=== PATIENT | female | born 1995 | race Caucasian/White ===

== ENCOUNTER → 2024-02-15 | Outpatient (CLI) | payer OTHER, SELFPAY ==
[2024-02-17 21:07] LABS: Chlamydia By Nucleic Acid AMP Negative (Negative); Gonococcus By Nucleic Acid AMP Negative (Negative)
[2024-02-22 13:14] LABS: HPV Reflexed? NOT INDICATED
== END | disposition home or self-care (01) ==
LOC: LABSPEC 14:49
PROVIDERS: Visit Provider Nurse Practitioner Women's Health
DX: Z12.4 Encounter for screening for malignant neoplasm of cervix (principal); Z11.3 Encounter for screening for infections with a predominantly sexual mode of transmission
CPT/HCPCS: 87491; 87591; 88175; G0145

== ENCOUNTER → 2024-02-17 | Outpatient (CLI) | payer OTHER, SELFPAY ==
[2024-02-19 09:07] LABS: PROGESTERONE 1.2 ng/mL (.)
[2024-02-23 13:08] LABS: PROLACTIN 15.1 ng/mL (4.8-33.4); Testosterone Free 1.3 pg/mL (0.0-4.2)
== END | disposition home or self-care (01) ==
LOC: LAB 12:44
PROVIDERS: Referring Provider Nurse Practitioner Women's Health; Visit Provider Nurse Practitioner Women's Health
DX: N97.9 Female infertility, unspecified (principal)
CPT/HCPCS: 36415; 82627; 84144; 84146; 84402; 84443; 82626

== ENCOUNTER → 2024-02-23 | Outpatient (CLI) | payer OTHER, SELFPAY ==
--- NOTE | 2024-02-23 17:30 | US_ITS ---
STUDY: ULTRASOUND OF THE FEMALE PELVIS - COMPLETE REASON FOR EXAM: Female, 28 years old. MENORRHAGIA LMP: 02/15/2024 TECHNIQUE: Transabdominal and Transvaginal TECHNICAL QUALITY: Adequate. COMPARISON: None. FINDINGS: The uterus is anteverted and is in a midline position. The uterus measures 6.8 x 4.2 x 2.7 cm. Normal uterine cervix. The endometrium measures 4 mm in thickness, and is hyperechoic. There is no demonstrated endometrial mass. There is no demonstrated myometrial mass. I.U.D. - The patient does not have an I.U.D. The right ovary is visualized. The right ovary measures 2.7 x 2.2 x 1.3 cm. There is a 1.1 cm cyst. There is no visualized right adnexal mass or complex lesion. There is normal arterial and normal venous vascularity. The left ovary is visualized. The left ovary measures 3.2 x 2.1 x 1.8 cm. There is no left ovarian cyst or ovarian mass. There is no visualized left adnexal mass or complex lesion. There is normal arterial and normal venous vascularity. There is no fluid in the cul-de-sac. The pre void volume of the bladder was 478 ml. US/Pelvic w/ Transvaginal IMPRESSION: Normal female pelvis. Electronically Signed: Keegan Garcia MD at 18:06 EDT ,
== END | disposition home or self-care (01) ==
LOC: US 17:28
PROVIDERS: Referring Provider Nurse Practitioner Women's Health; Visit Provider Nurse Practitioner Women's Health
DX: N92.0 Excessive and frequent menstruation with regular cycle (principal)
CPT/HCPCS: 76830; 76856

== ENCOUNTER → 2024-04-03 | Outpatient (CLI) | payer OTHER, SELFPAY ==
--- NOTE | 2024-04-03 08:04 | MRI_ITS ---
EXAM: MR PELVIS WITHOUT AND WITH INTRAVENOUS CONTRAST CLINICAL INDICATION: Dysmenorrhea, chronic pelvic pain TECHNIQUE: Multiplanar and multisequence MR images of the pelvis without and with intravenous contrast. CONTRAST: IV 15ml Clariscan COMPARISON: Pelvic ultrasound 02/23/2024 FINDINGS: INTRAPERITONEAL SPACE: Physiological amount of free fluid noted within the pelvis. BLADDER: Normal. OVARIES: Right ovary measures 4.2 x 2.3 x 2.3 cm and contains multiple peripheral follicles measuring 6 mm and less in size. Additional thick-walled 2.1 cm complex right ovarian cyst suggestive of corpus luteum. Left ovary measures 3.0 x 2.5 x 1.1 cm and also contains subcentimeter follicles. UTERUS/CERVIX: Uterus is normal size measuring 6.8 x 4.6 x 3.1 cm. Endometrial thickness is 12 mm. No evidence of uterine mass. BONES/JOINTS: Normal. SOFT TISSUES: Normal. No pelvic wall hernia. LYMPH NODES: Normal. No enlarged lymph nodes. MRI/Pelvis W/WO Contrast IMPRESSION: 2.1 cm complex right ovarian lesion consistent with corpus luteum likely recently ruptured. Otherwise unremarkable pelvic MRI. Electronically Signed: Wilber Lopez MD at 9:58 EST ,
== END | disposition home or self-care (01) ==
PROVIDERS: Referring Provider Obstetrics & Gynecology; Visit Provider Obstetrics & Gynecology
DX: N94.6 Dysmenorrhea, unspecified (principal); R10.2 Pelvic and perineal pain
CPT/HCPCS: 72197; A9575

== ENCOUNTER → 2024-05-21 | Outpatient (CLI) | payer OTHER, SELFPAY ==
[2024-05-22 21:06] LABS: Chlamydia By Nucleic Acid AMP Negative (Negative); Gonococcus By Nucleic Acid AMP Negative (Negative)
== END | disposition home or self-care (01) ==
LOC: LABSPEC 10:37
PROVIDERS: Referring Provider Advanced Practice Midwife; Visit Provider Advanced Practice Midwife
DX: Z34.90 Encounter for supervision of normal pregnancy, unspecified, unspecified trimester (principal)
CPT/HCPCS: 87086; 87491; 87591

== ENCOUNTER → 2024-05-24 | Outpatient (CLI) | payer OTHER, SELFPAY ==
[2024-05-24 17:16] LABS: Absolute Lymphocyte Count 2.35 X10^3/uL (0.83-4.51); Basophil# 0.03 X10^3/uL; Basophil% 0.4 % (0-1); Eosinophil# 0.11 X10^3/uL; Eosinophils% 1.3 % (0-5); Hematocrit 34.9 % (37-47); Hemoglobin 11.6 g/dL (12.0-15.0); Lymphocyte # 2.35 X10^3/ul (0.83-4.51); Lymphocyte % 28.5 % (19-41); Mean Corp Hgb Conc 33.2 g/dL (32-36); Mean Corpuscular Hgb 29.4 pg (27.0-32.0); Mean Corpuscular Volume 88.6 fL (81-99); Mean Platelet Vol. 11.7 fl (6.2-12.0); Monocyte# 0.75 X10^3/uL; Monocyte% 9.1 % (0-10); NRBC Flagged by Analyzer 0 % (0-5); Neutrophil # 4.98 X10^3/uL (2.7-7.7); Neutrophil % 60.2 % (47-70); Platelet Count 241 K/mm3 (150-450); RBC Distribution Width CV 12.7 % (11.6-14.6); RBC Distribution Width SD 41.2 fl (35.1-43.9); Red Blood Count 3.94 M/mm3 (4.2-5.4); White Blood Count 8.3 K/mm3 (4.4-11.0)
[2024-05-24 18:01] LABS: HIV - WCH Non-Reactive (Nonreactive); Hepatitis B Surface Antigen Non-Reactive (Nonreactive); Hepatitis C Antibody Non-Reactive (Nonreactive); Rubella IgG Reactive (Nonreactive); Syphilis Antibodies Non-reactive
== END | disposition home or self-care (01) ==
LOC: BWCLAB 16:04
PROVIDERS: Referring Provider Advanced Practice Midwife; Visit Provider Advanced Practice Midwife
DX: Z34.90 Encounter for supervision of normal pregnancy, unspecified, unspecified trimester (principal)
CPT/HCPCS: 36415; 85025; 86703; 86762; 86780; 86803; 86850; 86900; 86901; 87340

== ENCOUNTER → 2024-06-05 | Outpatient (CLI) | payer OTHER, SELFPAY ==
--- NOTE | 2024-06-05 16:00 | CER_PTH ---
PATIENT: IGLESIA GURROLA LOC: [facility] U#:[id number] AGE/SX: 29/F ROOM: RE06/05/[address]: Dr. Ashwini Roth DO : 1995 BED: DIS: 06/05/2024 SPEC #: [id number] RECD: 06/05/24 16:53 STATUS: TYESHA GARCÍA #: [id number] LUAN: 06/05/24 16:[address]: Ashwini Roth DEPT: SURGICAL PATHOLOGY RECD BY: Natali Rodriguez Tissues: Uterine cervix, NOS Procedures: Surgery Specimen Level IV HEADER OPERATION: Polypectomy PRE-OP DIAGNOSIS: Cervical polyp TISSUE SUBMITTED: Cervical polyp MICROSCOPIC DIAGNOSIS Cervical polyp, polypectomy: Fragments of benign inflamed polyp with extensive decidual changes. See comment. 06/07/2024 COMMENT The specimen shows marked cautery artifacts. The findings may represent benign inflamed mixed endocervical and endometrial polyp. Case has been reviewed in consultation with Dr. Hu who concurs with the above diagnosis. IDC:[id number] MICROSCOPIC DESCRIPTION Slides are reviewed. GROSS DESCRIPTION Received is one container labeled with the patient's name and not further designated. The specimen consists of multiple polypoid fragments of loza soft tissue that in aggregate measure 3.5 x 3.5 x 1.0 cm. Polypoid pieces are bisected and serially sectioned. Also present in the container are multiple fragments of hemorrhagic soft tissue measuring in aggregate 2.5 x 2.0 x 0.3cm. The specimen is totally submitted in four cassettes. Cassette 1-3 contains the polypoid tissue. 06/06/2024 TC:5 CPT:64932
== END | disposition home or self-care (01) ==
LOC: LABSPEC 16:54
PROVIDERS: Visit Provider Obstetrics & Gynecology
DX: N84.1 Polyp of cervix uteri (principal)
CPT/HCPCS: 88305

== ENCOUNTER → 2024-07-30 | Outpatient (CLI) | payer OTHER, SELFPAY ==
--- NOTE | 2024-07-30 14:12 | US_ITS ---
PROCEDURE: OB ANATOMY W/ TRANSVAGINAL REASON FOR EXAM: anatomy. COMPARISON: None. FINDINGS Number: 1 Position: Vertex Placental Position: Posterior and left lateral. Not low-lying. Placental Abnormalities: None. DIMENSIONS: Biparietal Diameter: 4.6 cm: 20 weeks and 0 days: 62 percentile/ Head Circumference: 17.1 cm: 19 weeks and 5 days: 42 percentile/ Abdominal Circumference: 14.9 cm: 20 weeks and 1 day: 61 percentile/ Femur Length: 3.1 cm: 19 weeks and 4 days: 36 percentile/ ESTIMATED WEIGHT: 321 g plus/-48 g ESTIMATED WEIGHT PERCENTILE (24+ weeks): 57 ESTIMATED GESTATIONAL AGE: Baseline: 19 weeks and 5 days By Ultrasound: 19 weeks and 6 days ESTIMATED DATE OF DELIVERY: Baseline: December 19, 2024 By Ultrasound: December 18, 2024 BIOPHYSICAL ASSESSMENT: Amniotic Fluid Volume: Subjectively normal. Cardiac Motion: 144 beats per minute (average) Trunk and Limb Motion: Present. MATERNAL ANATOMY: Adnexa: Neither maternal ovary is successfully identified. Cervical Length (if measured): 3.3 cm ANATOMY: Spine: Unremarkable. Cranium: Unremarkable. Cerebellum: Unremarkable. Cisterna Magna: Unremarkable. Cavum Septum Pellucidi: Present. Lateral Ventricles: Unremarkable. Choroid Plexus: Unremarkable. Midline Falx: Present. Nuchal Fold: Upper Lip: Grossly intact. Heart: Normal four-chamber view. Ventricular Outflow Tracts: Unremarkable. Stomach: Unremarkable. Kidneys: Unremarkable. Bladder: Midline. Umbilical Cord: Three vessel cord. Normal and placental insertions. Extremities: Unremarkable. US/OB Anatomy w/ Transvaginal IMPRESSION: UNREMARKABLE ANATOMIC SURVEY. Single live intrauterine gestation with a mean gestational age of 19 weeks and 6 days. Reading Location: [facility]
== END | disposition home or self-care (01) ==
LOC: US 14:11
PROVIDERS: Referring Provider Obstetrics & Gynecology; Visit Provider Obstetrics & Gynecology
DX: Z34.90 Encounter for supervision of normal pregnancy, unspecified, unspecified trimester (principal)
CPT/HCPCS: 76805; 76817

== ENCOUNTER 2024-08-04 13:48 | Emergency (ER) | payer OTHER, SELFPAY ==
[2024-08-04] VITALS (7 sets, daily range): BP systolic 108–147; BP diastolic 50–83; PULSE 78–90; RESP 12–16; TEMP 36.3–36.7; O2SAT 99–100; BMI 26.6
[2024-08-04 14:01] LABS: Bacteria 0 SEEN /hpf (None Seen); Mucous, Urine 0 SEEN /hpf (<or=2+); Squamous Epithelial Cells - UA 0 SEEN /hpf (5-10); White Blood Cells 0 SEEN /hpf (0-5)
[2024-08-04 14:05] LABS: Color, Urine Yellow (Yellow); Glucose, Dipstick Normal (Normal); Ketone-Dipstick 5 mg/dl (Negative); Leukocyte Esterase-Dipstick 25 /ul (Negative); Nitrite-Dipstick Negative (Negative); Occult Blood-Urine 250 /ul (Negative); Protein-Dipstick 30 mg/dl (Negative); Urine Bilirubin Dipstick Negative (Negative); Urine Clarity Sl. Cloudy (Clear); Urine Urobilinogen Normal (Normal)
[2024-08-04 14:10] LABS: Red Blood Cells-Urine > 100 SEEN /hpf (0-5)
--- NOTE | 2024-08-04 14:41 | US_ITS ---
PROCEDURE: KIDNEY AND BLADDER REASON FOR EXAM: 29-year-old female, left flank pain. 20 weeks . TECHNIQUE: Ultrasound of the kidneys and bladder COMPARISON: None. FINDINGS: Normal renal sizes, parenchymal thicknesses, and echotextures. Mild left hydronephrosis. No right hydronephrosis. Small bilateral renal calculi, the largest within the right upper pole measuring 8 mm, and the largest within the left lower pole measuring 7 mm. Grossly normal bladder contour. No large bladder wall mass visualized. RIGHT Kidney Size: 11.4 x 5.4 x 4.4 cm Volume: 139 mL Parenchymal Thickness: 19 mm (>14mm is normal) LEFT Kidney Size: 11.1 x 5.8 x 6.4 cm Volume: 213 mL Parenchymal Thickness: 20 mm (>14mm is normal) BLADDER: Nondistended. US/Kidney and Bladder IMPRESSION: Bilateral renal calculi with mild left hydronephrosis. Reading Location: [id number]
--- NOTE | 2024-08-04 14:44 | EDS_ITS ---
<Statement entered by Neville Tarango DO - 08/07/24 08:48> Patient was seen and examined with physician school health assistant Brandee All components of the history and physical confirmed and agreed. History of present illness and physical exam: Patient is a 29-year-old female currently 20 weeks who presents to the emergency department with a chief complaint of painful urination and lower back pain. She states that all her pain in her left flank started around 11:30 AM and had progressively worsened and associate with nausea and vomiting prompting her to come here for the valuation management. Patient denied any vaginal bleeding or spotting but denied any vaginal discharge. Patient denies any previous abdominal surgeries or kidney stones. Review of systems: Agree with above Physical exam: Agree with above MDM Patient is a 29-year-old female who presents to the emergency department chief complaint of left flank pain and painful urination. On the differential diagnose includes but not limited to UTI, pyelonephritis, urolithiasis. Once workup is obtained reviewed she will be reevaluated. heart tones are 133. Patient CBC showed a white count of 12,000, hemoglobin 11.3, plate count normal at 243. Patient sodium normal 136, potassium normal 3.9, creatinine normal at 0.71. Patient urinalysis showed no evidence infection however there was 250 occult blood with greater than 100 red blood cells noted. The patient's renal ultrasound showed bilateral renal calculi with a mild left hydronephrosis. I went back into reevaluate the patient and she was in a significant amount of pain still therefore Brandee reached out to on-call urology Dr. Brand who is recommending getting a CT scan as depending on the stone size and position she may have to operate. Patient CT was reviewed and showed renal calculus within the urinary bladder at the left vesicular ureteral junction mild left hydronephrosis. Additional punctate bilateral renal calculi. Hogan intrauterine fetus in cephalic position noted. Reach back out to on-call urology discussed with Dr. Brand and she states that she can follow-up in the office with the patient given the stone is in her bladder at this point in time. Patient was offered observation versus going home and patient would like to go home at this point time she is feeling better. She was recommended fluids, Tylenol and returning with worsening symptoms or concerns. She is agreeable this plan as well as her significant other bedside all question concerns answered she was discharged home in stable condition. Final impression: Left flank pain Urolithiasis 20 weeks Hematuria Disposition: Patient will be discharged home in stable condition Supervising attending attestation: Neville WEST History of Present Illness Chief Complaint: Flank Pain Narrative Narrative: 29-year-old female who is 20 weeks woke up this morning with bladder pressure and burning with urination. About an hour later around 11:30 AM she developed left flank pain radiating towards the left lower abdomen with associated nausea and vomiting. She denies vaginal discharge or bleeding. Her only issue thus far was removal of cervical polyp at 12 weeks. She has no history of abdominal surgery or kidney stones. 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 current occupational exposures/hazards: Yes pets and animals: Yes ( taking care of litter box) pets and animals: cat(s) and dog(s) history of recent travel: No sexually active: Yes Smoking Status: Never smoker alcohol intake: never substance use type: does not use well-balanced diet: about half the time caffeine: Yes Type: coffee eating out: 1-3 times/week during the past year weight has: increased > 10 lbs what type of physical activity do you participate in: walking, bicycling and weight training frequency: 3-4 times per week duration: < 15 minutes/day starr/zoroastrianism: Buddhism seatbelt use: always do you feel safe at home: Yes 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 CVS: Negative for chest pain. Respiratory: Negative for shortness of breath. GI: Positive for nausea, vomiting. : Positive for dysuria. EXAM Physical Exam Narrative Exam Narrative: CONST: Patient sitting in no acute distress. EYES: Normal inspection. NECK: Normal inspection. RESP: No respiratory distress, CTAB. CVS: Regular rate and rhythm, no murmur, no gallop. ABD: Gravid abdomen is nontender, no guarding or rebound, nondistended. Back: Normal inspection, no CVA tenderness. SKIN: Color normal, no rash, warm, dry, intact. EXTREMITIES: Normal appearance, no pedal edema. NEURO: Alert and answering questions appropriately. PSYCH: Normal affect. Const Vital Signs: 08/04/24 13:48 08/04/24 15:48 08/04/24 16:38 Temperature 98.1 F Temperature Source Temporal Pulse Rate 83 90 Respiratory Rate 15 14 Blood Pressure 147/83 H 127/72 H Blood Pressure Mean 104 90 Pulse Ox 100 100 99 Oxygen Delivery Method Room Air Room Air 08/04/24 16:45 08/04/24 17:00 08/04/24 17:01 Temperature Temperature Source Pulse Rate 78 Respiratory Rate 12 Blood Pressure 108/50 L 135/71 H Blood Pressure Mean 63 88 Pulse Ox 99 100 100 Oxygen Delivery Method Room Air 08/04/24 17:51 Temperature 97.4 F L Temperature Source Pulse Rate 85 Respiratory Rate 16 Blood Pressure 122/77 H Blood Pressure Mean 92 Pulse Ox 100 Oxygen Delivery Method MDM MDM MDM Narrative Medical decision making narrative: History gathered from: Patient and Consults: Urology Differential: Kidney stone, pyelonephritis 29-year-old female who is 20 weeks presents with acute onset left flank pain and dysuria. She appears well and nontoxic. Vital signs stable. She has a benign exam. No respiratory distress. CBC shows WBC of 12.5, stable hemoglobin at 11.3, chemistry unremarkable. Urinalysis has a large blood but no infection. Since she is I ordered a renal ultrasound which shows bilateral renal colliculi with mild left hydronephrosis. I reassessed the patient after she received IV morphine, Zofran, and fluids but she is having worsening pain. I consulted urology and Dr. Brand recommended getting a CT scan because based on the stone placement and size surgical intervention may be indicated. I discussed the risks and benefits of a CT during with the patient and she would like to proceed with testing. CT shows a stone in the urinary bladder at the left vesicoureteral junction. When I reassessed the patient to relay these findings she appears much more comfortable and states her pain is significantly lessened. It is likely this is because the stone is passed into her bladder and she could still have some lingering discomfort from spasm. I offered an observation stay if her pain was not controlled but she would like to go home. I recommended fluids, Tylenol, and discussed return precautions. She was discharged in stable condition. Lab Data Attestation: I reviewed the patient's lab results. Labs: Laboratory Results - last 24 hr 08/04/24 08/04/24 13:57 15:00 WBC 12.5 H RBC 3.67 L Hgb 11.3 L Hct 32.6 L MCV 88.8 MCH 30.8 MCHC 34.7 RDW Std Deviation 43.7 RDW Coeff of Dayanara 13.5 Plt Count 243 MPV 11.1 Immature Gran % (Auto) 0.500 Neut % (Auto) 86.5 H Lymph % (Auto) 8.5 L [place] % (Auto) 4.2 Eos % (Auto) 0.1 Baso % (Auto) 0.2 Absolute Neuts (auto) 10.8 H Absolute Lymphs (auto) 1.07 Nucleated RBC % 0 Sodium 136 Potassium 3.9 Chloride 103 Carbon Dioxide 19.7 L Anion Gap 13 BUN 13 Creatinine 0.71 Estim Creat Clear Calc 119.83 Est GFR (MDRD) Non-Af 117 BUN/Creatinine Ratio 17.6 Glucose 101 H Calcium 9.2 Urine Color Yellow Urine Clarity Sl. Cloudy Urine pH 6.0 Ur Specific Alsey 1.020 Urine Protein 30 H Urine Glucose (UA) Normal Urine Ketones 5 H Urine Occult Blood 250 H Urine Nitrite Negative Urine Bilirubin Negative Urine Urobilinogen Normal Ur Leukocyte Esterase 25 H Urine RBC > 100 SEEN Urine WBC 0 SEEN Ur Squamous Epith Cells 0 SEEN Urine Bacteria 0 SEEN Urine Mucus 0 SEEN Radiography Diagnostic Testing: Clinical Impression(s) from Imaging Studies Renal Ultrasound 08/04/24 14:41 IMPRESSION: Bilateral renal calculi with mild left hydronephrosis. Reading Location: [facility] Abdomen/Pelvis CT 08/04/24 16:14 IMPRESSION: 1. Renal calculus within the urinary bladder at the left vesicoureteral junction. Mild left hydroureteronephrosis. 2. Additional punctate bilateral renal calculi. 3. Hogan intrauterine fetus in cephalic positioning. One or more dose reduction techniques were used (e.g., Automated exposure control, adjustment of the mA and/or kV according to patient size, use of iterative reconstruction technique). Reading Location: [facility] Discharge Plan Triage Chief Complaint: Flank Pain ED Midlevel Provider: Brandee Singer ED Provider: Neville Tarango Dx/Rx/DC Orders Clinical Impression: Calculus of left kidney, Second trimester Instructions: ED Kidney Stone with Pain Prescriptions: No Action DHA 200 mg capsule 200 mg PO DAILY Primary Care Provider: Juany Kelly Referrals: Ashley Brand MD [Med Staff - Active Staff] - Care Physician,No Primary [Non-Staff] - Activity Restrictions/Additional Instructions: There is a small kidney stone within the bladder on the left side. Drink plenty of fluids and take Tylenol every 6 hours as needed. If your symptoms worsen contact your OB or urology, or if symptoms are severe or you develop a fever come to the emergency room immediately. Print Language: Thai Disposition Disposition: Home, Self Care Discharge Date/Time: 08/04/24 17:55
[2024-08-04] MEDS: Ondansetron 4 MG/2 ML Vial IV (14:57)
[2024-08-04] MEDS: 0.9% Normal Saline (1000mL) 1,000 ML 999 ML IV (14:57)
[2024-08-04 15:14] LABS: Absolute Lymphocyte Count 1.07 X10^3/uL (0.83-4.51); Absolute Neutrophil Count 10.8 X10^3/uL (2.0-7.7); Basophil# 0.02 X10^3/uL; Basophil% 0.2 % (0-1); Eosinophil# 0.01 X10^3/uL; Eosinophils% 0.1 % (0-5); Hematocrit 32.6 % (37-47); Hemoglobin 11.3 g/dL (12.0-15.0); Lymphocyte # 1.07 X10^3/ul (0.83-4.51); Lymphocyte % 8.5 % (19-41); Mean Corp Hgb Conc 34.7 g/dL (32-36); Mean Corpuscular Hgb 30.8 pg (27.0-32.0); Mean Corpuscular Volume 88.8 fL (81-99); Mean Platelet Vol. 11.1 fl (6.2-12.0); Monocyte# 0.53 X10^3/uL; Monocyte% 4.2 % (0-10); NRBC Flagged by Analyzer 0 % (0-5); Neutrophil # 10.83 X10^3/uL (2.7-7.7); Neutrophil % 86.5 % (47-70); Platelet Count 243 K/mm3 (150-450); RBC Distribution Width CV 13.5 % (11.6-14.6); RBC Distribution Width SD 43.7 fl (35.1-43.9); Red Blood Count 3.67 M/mm3 (4.2-5.4); White Blood Count 12.5 K/mm3 (4.4-11.0)
[2024-08-04] MEDS: Morphine 4 MG/ML Syringe IV (15:29)
[2024-08-04 15:57] LABS: Anion Gap 13 (5-15); BUN 13 mg/dL (4-19); BUN/Creat Ratio 17.6 RATIO (10-20); Calcium,Total 9.2 mg/dL (7.6-11.0); Carbon Dioxide 19.7 mmol/L (21.0-32.0); Chloride 103 mmol/L (98-108); Creatinine, Serum 0.71 mg/dL (0.70-1.20); EST Glomerular Filtration Rate 117 (>60); Estimated Creatinine Clearance 119.83 ml/min (50-250); Glucose 101 mg/dL (70-99); Potassium 3.9 mmol/L (3.3-5.1); Sodium Level 136 mmol/L (133-145)
--- NOTE | 2024-08-04 16:14 | CT_ITS ---
PROCEDURE: ABDOMEN/PELVIS WITHOUT CONT REASON FOR EXAM: 29-year-old female, left flank pain. 20 weeks . TECHNIQUE: Abdomen and pelvis CT with intravenous contrast. No oral contrast. IV CONTRAST: None. COMPARISON: Same day renal and kidney ultrasound. FINDINGS: Lung bases: The heart is normal in size. The lung bases are clear. Liver: The liver is normal in size. No biliary ductal dilation. Gallbladder: No radiopaque stones within the gallbladder. Spleen: Unremarkable. Pancreas: Unremarkable. Adrenals: Unremarkable. Kidneys/bladder: Punctate right lower pole renal calculus. No right hydronephrosis. Punctate left lower pole renal calculus with mild left hydroureteronephrosis. Punctate calculus within the left vesicoureteral junction. The urinary bladder is compressed by adjacent uterus. Reproductive Organs: Hogan intrauterine fetus in cephalic positioning. Bowel: The bowel loops are normal in caliber. No ascites or pneumoperitoneum. Normal appendix. Lymph nodes: No suspicious lymph node enlargement. Vasculature: Major vascular structures are unremarkable. Bones: No aggressive osseous lesions. CT/Abdomen/Pelvis without Cont IMPRESSION: 1. Renal calculus within the urinary bladder at the left vesicoureteral junctio n. Mild left hydroureteronephrosis. 2. Additional punctate bilateral renal calculi. 3. Hogan intrauterine fetus in cephalic positioning. One or more dose reduction techniques were used (e.g., Automated exposure contr ol, adjustment of the mA and/or kV according to patient size, use of iterative reconstruction technique). Reading Location: [id number]
[2024-08-04] MEDS: Metoclopramide 10 MG/2 ML Vial IV (16:23)
== END 2024-08-04 17:55 | disposition home or self-care (01) ==
PROVIDERS: Physician Assistant; Emergency Provider Emergency Medicine; PCP Family Medicine; Visit Provider Emergency Medicine
DX: O26.892 Other specified pregnancy related conditions, second trimester (principal); R31.9 Hematuria, unspecified; N13.2 Hydronephrosis with renal and ureteral calculous obstruction; Z3A.20 20 weeks gestation of pregnancy; O99.891 Other specified diseases and conditions complicating pregnancy
CPT/HCPCS: 74176; 76770; 80048; 81001; 85025; 99284; A4216; J2405

== ENCOUNTER 2024-08-16 13:31 | Inpatient (IN) | payer OTHER, SELFPAY ==
[2024-08-16] VITALS (13 sets, daily range): BP systolic 123–129; BP diastolic 61–73; PULSE 103–133; TEMP 37.8; O2SAT 100; BMI 26.9
[2024-08-16] MEDS: Lactated Ringers 1,000 ML 999 ML IV (13:20)
[2024-08-16] MEDS: Magnesium Sulfate 4gm/100mL 6 GM/150 ML IV.SOLN. IV ×2 (13:31→13:47)
--- NOTE | 2024-08-16 13:32 | PCM.HP.OB ---
HPI - General General Date of Admission: 08/16/24 HPI Narrative IGLESIA GURROLA, is a 29 y/o @ 22 weeks 2 days who presents to labor and delivery for contractions and bleeding. on exam in the office she is found to be visually 4 cm dilated with bulging membranes. On the monitor the heart rate is 160's and contractions are noted every minute. She expresses that she would like to resuscitate the baby. I have discussed her situation with Dr. Sloan Gibson at [facility] and recommendations are to give steroids, tocolytics, mag, and abx as long as she understands that survival rates and normal development after delivery at this gestational age is very low. Dr. Parada, net ui developer, is at her beside and has also given her the risks and mortality rates. Maternal Data Information MONY Calculator Estimated Delivery Date Method Current WG Current Estimate 12/19/24 LMP (Certain) 22w 1d PFSH PFSH Medical History Genital herpes Dysmenorrhea ADHD Home Medications ?Medication ?Instructions ?Recorded ?Last Taken ?Type docosahexaenoic acid 200 mg 200 mg PO DAILY 05/18/24 08/15/24 History capsule ( DHA) Allergy/AdvReac Type Severity Reaction Status Date / Time No Known Allergies Allergy Verified 08/16/24 13:17 Family History Father Ulcerative colitis Heart disease Triple Bypass Surgical History H/O wisdom tooth extraction History of hymenectomy Social History adopted: No household members: spouse current occupational status: employed 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 current occupational exposures/hazards: Yes pets and animals: Yes ( taking care of litter box) pets and animals: cat(s) and dog(s) history of recent travel: No sexually active: Yes Smoking Status: Never smoker alcohol intake: never substance use type: does not use well-balanced diet: about half the time caffeine: Yes Type: coffee eating out: 1-3 times/week during the past year weight has: increased > 10 lbs what type of physical activity do you participate in: walking, bicycling and weight training frequency: 3-4 times per week duration: < 15 minutes/day starr/episcopalian: Nondenominational seatbelt use: always do you feel safe at home: Yes 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 History 1 Elective abortions Hx Para 0 Spontaneous abortions 0 Hx # Term Pregnancies Ectopic pregnancies Hx # Pregnancies Multiple births # of living children 0 Visit Details Expected Delivery Route/Plan Labor Preferences- CB/BF classes: [] labor support person: [] labor intervention preferences: [] pain management options preferred: [] cut cord/dad catch: [] : [] PP control planned: [] discussed possible routes of delivery and associated risks: [] special requests: [] Plans Covid status: [] Flu vaccine: [] Tdap vaccine: [] Rhogam: [] LARC form signed: [] Problem list reviewed and updated with the most current plan of care details and appropriate orders placed. Relevant counseling for the gestational age provided. Continue routine care and follow up unless otherwise noted in visit notes/problem list details OB Flowsheet Initial Weight: 167 lb Date <del>?</del> EGA Weight BP Urine Prot <del>?</del> Glucose FHR FuHt Pres Dilation <del>?</del> Effaced St Visit Note 05/21/24 <del>?</del> 9w 5d 167 lb (+0 oz) 137/78 <del>?</del> 180 <del>?</del> KW- CRL cons with dates. accepts NIPT. 06/05/24 <del>?</del> 11w 6d 163 lb (-4 lb) 163 lb (-4 lb) 139/82 Trace <del>?</del> Negative 169 <del>?</del> JV- pt presents with intermittent bleeding/clotting. ultrasound shows a viable 12 week IUP. On exam there is a large pedunculated polyp at the cervical os that bleeds easily with palpation. see procedure note. 06/13/24 <del>?</del> 13w 0d 163 lb 2 oz (-3 lb 14 oz) 132/85 Trace <del>?</del> Negative 145 <del>?</del> JV- no longer bleeding. no complaints. pathology returned as a polyp. 07/11/24 <del>?</del> 17w 0d 166 lb 8 oz (-8 oz) 122/74 Negative <del>?</del> Negative 150 0 <del>?</del> MH-Had spotting on toilet tissue X 1 after BM yesterday. None since. Normal discharge on pelvic exam. No polyp noted. No FM yet. 08/08/24 <del>?</del> 21w 0d 168 lb 6 oz (+1 lb 6 oz) 123/77 Negative <del>?</del> Negative 145 <del>?</del> SM- no vb cramping, had kidney stones over the weeknd, will fu with tiffanie NAVARRO Constitutional Constitutional: Denies change in weight, fatigue, fever(s), headache(s), poor appetite or weakness Eyes Eyes: Denies blurry vision, change in vision, seeing flashes or spots in vision ENT HEENT: Denies dizziness, headache(s), loss taste/smell or sore throat Cardiovascular Cardiovascular: Denies chest pain, dizziness, dyspnea, irregular heart rhythm, leg edema, palpitations, rapid heart rate or vomiting Respiratory/Chest Respiratory/Chest: Denies chest tightness, cough, dyspnea or breast pain Gastrointestinal Gastrointestinal: Denies anorexia, constipation, diarrhea, hemorrhoids, vomiting or weight changes Genitourinary Genitourinary: Denies dysuria, flank pain, genital lesions, genital pain, urinary frequency or urinary urgency Musculoskeletal Musculoskeletal: Denies back pain, difficulty walking, joint pain, limited range of motion, muscle cramps or numbness Integumentary Integumentary: Denies lesions or unusual bruising Neurologic Neurologic: Denies abnormal movements, abnormal speech, dizziness, numbness, seizure-like activity or syncope Psychiatric Psychiatric: Denies anxiety, behavioral changes, change in appetite, change in libido, cognitive impairment, confusion, depression, difficulty concentrating, hallucinations or suicidal thoughts Endocrine Endocrinology: Denies excessive sweating, polydipsia or polyuria Hematologic/Lymphatic Hematologic/Lymphatic: Denies easy bleeding, easy bruising or lymphadenopathy Allergic/Immunologic Allergic/Immunologic: Denies itchy eyes, lip swelling, seasonal rhinorrhea, rhinitis, throat swelling, tongue swelling, eczemia, wheezing or asthma Vital Signs Vital Signs Vital Signs: 08/16/24 13:23 08/16/24 13:23 08/16/24 13:28 Pulse Rate 105 H Blood Pressure 127/72 H BP Systolic 127 BP Diastolic 72 Pulse Ox 100 08/16/24 13:28 08/16/24 13:28 Pulse Rate 106 H Blood Pressure BP Systolic BP Diastolic Pulse Ox 100 Weight Weight: 167 lb Body Mass Index (BMI) 26.9 Physical Exam Const alert, oriented x3, no apparent distress and healthy appearing General Appearance: cooperative; Negative for anxious HEENT normocephalic Face and Sinus: normal facial exam Eyes EOMs intact bilaterally and no scleral icterus General Eye: normal appearance of both eyes Neck full ROM and supple Lymph Lymphatic: no lymphadenopathy noted Chest Chest: abnormal inspection of the chest Resp normal respiratory effort Effort and Inspection: able to speak in complete sentences Cardio regular rate GI soft to palpation and non-tender Inspection: gravid Palpation: soft and tender external exam normal Manual OB Exam: other cx is 4 cm visually with bulging membranes Amniotic Fluid: no amniotic fluid noted Back/Spine no CVA tenderness Extremity normal to inspection, full ROM and no clubbing, cyanosis or edema General Extremity: Negative for calf tenderness or edema Skin Lesions: no lesions Rashes: no rashes Psych mental status grossly normal Labs Labs Labs: Blood Type A POSITIVE Antibody Screen NEGATIVE Hct 32.6 % (37-47) L Hgb 11.3 g/dL (12.0-15.0) L Obstetrics Ultrasound Syphilis Total Ab Non-reactive Rubella IgG Antibody Reactive (Nonreactive) Hep Bs Antigen Non-Reactive (Nonreactive) Hepatitis C Antibody Non-Reactive (Nonreactive) Chlamydia DNA ([place]) Negative (Negative) N.gonorrhoeae DNA ([place]) Negative (Negative) HIV 1&2 Antibody Non-Reactive (Nonreactive) Assessment & Plan (1) labor: (2) Bilobed placenta: (3) Polyp at cervical os: COMMENT: removed JV 06/06/24 (4) Supervision of normal : QUALIFIERS: Normal : normal first Trimester: second trimester Qualified Code(s): Z34.02 - Encounter for supervision of normal first , second trimester COMMENT: PRR, , MONY 12/19/24, : [place] (5) : QUALIFIERS: Weeks of gestation: 21 weeks Qualified Code(s): Z3A.21 - 21 weeks gestation of COMMENT: NIPT (6) Genital herpes affecting : QUALIFIERS: Trimester: second trimester Qualified Code(s): O98.312 - Other infections with a predominantly sexual mode of transmission complicating , second trimester; A60.09 - Herpesviral infection of other urogenital tract COMMENT: 36 week treatment 2017 - Current outbreak 04/2024 ( also has Herpes) (7) Urinary incontinence: COMMENT: urogyn consult sent to [facility] (8) Pain with bowel movements: COMMENT: Pelvic MRI ordered for evaluation (9) Menorrhagia with regular cycle: COMMENT: suspicion for endometriosis, discussed diagnostic laparoscopy and chromotubation, recommend urogyn consult and semen analysis first. (10) Pelvic pain: COMMENT: high suspicion for endometriosis. US, day 3 labs, SA([place]). Will schedule exp laparoscopy with chromo with SM. pelvic MRI ordered. (11) Dysmenorrhea: (12) ADHD: PLAN: Plan steroids, tocolytics, abx, and mag started patient wants to do everything. helicopter to be her in 18 minutes will spec prior to getting on the stretcher patient understands that the worse case scenario for transport is delivering in the helicopter. She understands the risk and wants to move forward
[2024-08-16] MEDS: NIFEdipine 10 MG Capsule PO ×2 (13:38→14:02)
[2024-08-16] MEDS: Betamethasone/Betamethasone 30 MG/5 ML Vial 12 MG IM (13:40)
[2024-08-16] MEDS: Penicillin G Pot 5,000,000 UNITS in 0.9% Normal Saline (100mL MB+) 100 ML 150 UNITS IV (13:42)
[2024-08-16 13:51] LABS: Absolute Lymphocyte Count 1.67 X10^3/uL (0.83-4.51); Absolute Neutrophil Count 8.1 X10^3/uL (2.0-7.7); Basophil# 0.03 X10^3/uL; Basophil% 0.3 % (0-1); Eosinophil# 0.03 X10^3/uL; Eosinophils% 0.3 % (0-5); Hematocrit 33.6 % (37-47); Hemoglobin 11.4 g/dL (12.0-15.0); Lymphocyte # 1.67 X10^3/ul (0.83-4.51); Lymphocyte % 15.9 % (19-41); Mean Corp Hgb Conc 33.9 g/dL (32-36); Mean Corpuscular Volume 88.4 fL (81-99); Mean Platelet Vol. 11.1 fl (6.2-12.0); Monocyte# 0.62 X10^3/uL; Monocyte% 5.9 % (0-10); NRBC Flagged by Analyzer 0 % (0-5); Neutrophil # 8.12 X10^3/uL (2.7-7.7); Neutrophil % 77.2 % (47-70); Platelet Count 252 K/mm3 (150-450); RBC Distribution Width CV 13.2 % (11.6-14.6); White Blood Count 10.5 K/mm3 (4.4-11.0)
[2024-08-16] MEDS: Magnesium Sulfate 20 GM/500 ML BAG IV (14:05)
[2024-08-16] MEDS: Lactated Ringers 1,000 ML 150 ML IV (14:14)
[2024-08-16 14:35] LABS: Syphilis Antibodies Nonreactive (Nonreactive)
== END 2024-08-16 14:25 | disposition short-term general hospital (02) | DRG 832 ==
PROVIDERS: Admitting Provider Obstetrics & Gynecology; PCP Family Medicine; Visit Provider Obstetrics & Gynecology
DX: O60.02 Preterm labor without delivery, second trimester (principal); O98.312 Other infections with a predominantly sexual mode of transmission complicating pregnancy, second trimester; A60.09 Herpesviral infection of other urogenital tract; R19.8 Other specified symptoms and signs involving the digestive system and abdomen; R10.2 Pelvic and perineal pain; O26.892 Other specified pregnancy related conditions, second trimester; R32 Unspecified urinary incontinence; O43.192 Other malformation of placenta, second trimester; Z3A.21 21 weeks gestation of pregnancy
CPT/HCPCS: 36415; 59025; 59050; 85025; 86780; 86850; 86900; 86901; 96372; 99221; G0378; J0702

== ENCOUNTER → 2024-11-27 | Outpatient (CLI) | payer OTHER, SELFPAY ==
--- NOTE | 2024-11-27 11:20 | US_ITS ---
PROCEDURE: KIDNEY AND BLADDER 11/27/2024 REASON FOR EXAM: KIDNEY STONES/ URETERAL STONE TECHNIQUE: KIDNEY AND BLADDER COMPARISON: None FINDINGS: Right kidney measures 10.8 cm and left kidney measures 10.0 cm. Normal echotexture of bilateral kidneys. No hydronephrosis. No renal stones. Urinary bladder is unremarkable. US/Kidney and Bladder IMPRESSION: No hydronephrosis. No renal stones. Reading Location: [id number]
--- NOTE | 2024-11-27 11:20 | US_ITS ---
PROCEDURE: KIDNEY AND BLADDER 11/27/2024 REASON FOR EXAM: KIDNEY STONES/ URETERAL STONE TECHNIQUE: KIDNEY AND BLADDER COMPARISON: None FINDINGS: Right kidney measures 10.8 cm and left kidney measures 10.0 cm. Normal echotexture of bilateral kidneys. No hydronephrosis. No renal stones. Urinary bladder is unremarkable. US/Kidney and Bladder IMPRESSION: No hydronephrosis. No renal stones. Reading Location: [id number]
== END | disposition home or self-care (01) ==
LOC: US 11:19
PROVIDERS: PCP Family Medicine; Referring Provider Urology; Visit Provider Urology
DX: N20.0 Calculus of kidney (principal); N20.1 Calculus of ureter
CPT/HCPCS: 76770